=== PATIENT | male | born 1960 | race Caucasian/White ===

== ENCOUNTER 2023-10-15 09:43 | Emergency (ER) | payer OTHER, SELFPAY ==
[2023-10-15 09:48] VITALS: BP 154/90
--- NOTE | 2023-10-15 09:58 | ED.SKININJ ---
HPI-Injury
General
Chief Complaint: Head Injury
Source: patient
Exam Limitations: none
Time Seen by Provider: 10/15/23 09:53
Nursing documentation reviewed up to this point in time: agreed with
History of Present Illness-Injury
Initial Injury comments:
63-year-old male with no significant past medical history was playing pickle ball within the last hour and was hit in his glasses by a pickleball paddle which pushed the glasses into the corner of his left eye causing a small laceration. He denies
headache, denies change in vision.
Past History
Past History
ED Past Medical History: None
ED Past Surgical History: Urological (Vasectomy)
Social History
Tobacco: Non-smoker
Alcohol: Occasional
Drug: None
Personal:
Living: with family
Employment: Employed
Family History
Family History: Other (Noncontributory)
Review of Systems
Review of Systems
Allergies reviewed?: Yes
All Other Systems: ROS reviewed and negative except as documented in HPI and ROS
EENT: Reports other (Denies change in vision)
Skin: Reports other (Small laceration lateral corner of left eye)
Neurological: Denies dizzy or headache
Skin Exam
Laceration
L lateral orbit:
Length in cm: 0.5
Orientation: diagonal
Type of Laceration: simple
Any active bleeding?: no active bleeding
Phy Exam
Physical Exam
Physical Exam:
GENERAL: No acute distress. A&Ox3.
CONSTITUTIONAL: Afebrile.
EYES: PERRL, conjunctivae normal, EOMs intact, no orbital bony tenderness
Neck: Supple
RESPIRATORY: Regular respirations, nonlabored, lungs clear.
CARDIOVASCULAR: Regular rate and rhythm, no murmurs, no rubs.
MUSCULOSKELETAL: Moves with ease. Well perfused.
SKIN: Warm, dry, pink
PSYCH: Normal mood and affect. Well kept, interactive and appropriate
NEUROLOGIC: Awake, alert and oriented. No focal neurological deficits
Course
Vital Signs
Initial and Last Documented VS:
Initial Vital Signs
Temp Pulse Resp BP Pulse Ox
98.2 F 77 18 154/90 96
10/15/23 09:48 10/15/23 09:48 10/15/23 09:48 10/15/23 09:48 10/15/23 09:48
Last Documented Vital Signs
Temp Pulse Resp BP Pulse Ox
98.2 F 77 18 154/90 96
10/15/23 09:48 10/15/23 09:48 10/15/23 09:48 10/15/23 09:48 10/15/23 09:48
Procedures
Laceration Closure
Left lateral orbit:
Status of Wound: clean
Size of Wound in cm: 0.5
Description of Wound Edges: sharp
Preparation: cleaned with saline
Revision/Debridement: routine- no revision
Type of Closure: Dermabond-skin glue
MDM/Problems Addressed
MDM/Problems Addressed:
63-year-old male with no significant past medical history was playing pickle ball within the last hour and was hit in his glasses by a pickleball paddle which pushed the glasses into the corner of his left eye causing a small laceration. He denies
headache, denies change in vision.
This is a relatively simple laceration, edges well-approximated with wound glue.
No orbital bony tenderness, EOMs intact, no suspicion of fracture
Last Tdap 2022
*Critical Care Note
Total Time (30-74mins, 75-104mins- exclusive of procedures): Not Applicable
ED Attending Note
-
Portions of this chart may have been created with voice recognition software.� Occasional wrong word or��sound alike� substitutions may have occurred due to the inherent limitations of voice recognition software.
Discharge Plan
Departure
Patient Disposition: Home (Routine Discharge)
Date of Disposition: 10/15/23
Time of Disposition: 10:02
Patient with high blood pressure during this ER visit?: No
Condition: Good
Discharge Problem:
Laceration of left orbital rim without complication
Instructions: Laceration Repair With Glue (DC), Minor Head Injury, Adult ED
Prescriptions:
No Action
hydrocodone-acetaminophen 5 MG/500 MG tablet
1 tab PO .Q4-6HPRN PRN (Reason: PAIN) Qty: 20 0RF
cephalexin [Keflex] 500 MG capsule
500 mg PO BID Qty: 20 0RF
oxycodone-acetaminophen [Percocet] 1 EACH tablet
1 ea PO Q4HPRN PRN (Reason: pain) Qty: 10 0RF
erythromycin 1 APPLIC ointment
1 applic OPHTHALMIC TID Qty: 1 0RF
Rx Instructions:
use for 1 week.
moxifloxacin [Vigamox] 0.5 % drops
1 drp OPHTHALMIC TID Qty: 1 0RF
Rx Instructions:
apply 10 minutes before erythromycin eye ointment for 1 week.
cephalexin 500 MG capsule
500 mg PO QID Qty: 40 0RF
Activity Restrictions/Additional Instructions:
As we discussed, the glue should slough off within the next 2 weeks. You may briefly wet the area in the shower just do not rub it or apply any ointments.
It takes 5 days for this area to heal, after 5 days you may apply Vaseline or antibiotic ointment to help dissolve the glue if you wish
Interventions
Interventions:
*Risk Screen - Suicide Last Done: 10/15/23 09:48
*General Assessment Last Done: 10/15/23 09:48
*Neglect/Abuse Screening Last Done: 10/15/23 09:48
*Nursing Disposition Last Done: 10/15/23 10:30
ED- Neurological Assessment Last Done: 10/15/23 10:30
ED-Skin Assessment Last Done: 10/15/23 10:30
Discharge Date and Time
Discharge Date/Time: 10/15/23 10:36
Print Language: BELIZEAN
== END 2023-10-15 10:36 | disposition home or self-care (01) ==
LOC: EMR 09:43
PROVIDERS: EMERGENCY PHYSICIAN Student in an Organized Health Care Education/Training Program; FAMILY PHYSICIAN Family Medicine
DX: S01.112A Laceration without foreign body of left eyelid and periocular area, initial encounter (principal); W22.8XXA Striking against or struck by other objects, initial encounter
CPT/HCPCS: 99282; 12011